=== PATIENT | female | born 1955 | race Hispanic/Latino ===

== ENCOUNTER 2021-12-03 11:56 | Emergency (ER) | payer MEDICARE, OTHER ==
[~2021-12-03] VITALS: Ht 162.6 cm; Wt 75.6 kg
[2021-12-03] MEDS ORDERED: SODIUM CHLORIDE 0.9% 1000ML 1,000 ML IV STA (12:20)
[2021-12-03] MEDS ORDERED: KETOROLAC TROMETHAMINE 30 MG/ML VIAL IV ONE (12:30)
[2021-12-03] MEDS ORDERED: FAMOTIDINE 20 MG/2 ML VIAL IV ONE ×2 (12:30→12:43)
[2021-12-03] MEDS ORDERED: ONDANSETRON HCL INJ 2MG/ML 2ML 2 MG/ML VIAL IV ONE (12:30)
[2021-12-03] MEDS ORDERED: ONDANSETRON HCL INJ 2MG/ML 2ML 2 MG/ML VIAL ONE (12:42)
[2021-12-03] MEDS ORDERED: SODIUM CHLORIDE 0.9% 1000ML 1,000 ML ONE (12:43)
[2021-12-03] MEDS ORDERED: KETOROLAC TROMETHAMINE 30 MG/ML VIAL ONE (12:43)
[2021-12-03] MEDS ORDERED: TRAZODONE HCL50 MG PO (13:02)
[2021-12-03] MEDS ORDERED: ATORVASTATIN CA10 MG PO (13:02)
[2021-12-03] MEDS ORDERED: PRESERVISION A1 EAC2 (13:02)
[2021-12-03] MEDS ORDERED: TIZANIDINE HCL4 M1 PO (13:02)
[2021-12-03] MEDS ORDERED: METOPROLOL TART50 MG PO (13:02)
[2021-12-03] MEDS ORDERED: JANUVIA100 MG PO (13:02)
[2021-12-03] MEDS ORDERED: DOXYCYCLINE HY100 MG PO (13:20)
[2021-12-03] MEDS ORDERED: IBUPROFEN200 MG PO (13:20)
[2021-12-03] MEDS ORDERED: CEFTRIAXONE 1 GM VIAL IV ONE (13:30)
== END 2021-12-03 13:36 | disposition home or self-care (01) ==
LOC: FSED 12:10
DX: R30.0 Dysuria (principal); N30.90 Cystitis, unspecified without hematuria; R10.2 Pelvic and perineal pain; I10 Essential (primary) hypertension; E11.9 Type 2 diabetes mellitus without complications
CPT/HCPCS: 74176; 80053; 81003; 85025; 96374; 96375; 99284; J0696; J1885; J2405; J7030

== ENCOUNTER 2022-12-09 13:08 | Emergency (ER) | payer MEDICARE ==
[~2022-12-09] VITALS: Ht 162.6 cm; Wt 77.1 kg
[~2022-12-09 13:08] MED LIST: ATORVASTATIN CA10 MG PO; DOXYCYCLINE HY100 MG PO; IBUPROFEN200 MG PO; JANUVIA100 MG PO; METOPROLOL TART50 MG PO; PRESERVISION A1 EAC2; TIZANIDINE HCL4 M1 PO; TRAZODONE HCL50 MG PO
[2022-12-09] MEDS ORDERED: SODIUM CHLORIDE 0.9% 1000ML 1,000 ML IV STA (13:18)
[2022-12-09] MEDS ORDERED: ONDANSETRON HCL INJ 2MG/ML 2ML 2 MG/ML VIAL ONE (13:43)
[2022-12-09] MEDS ORDERED: KETOROLAC TROMETHAMINE 30 MG/ML VIAL ONE (13:43)
[2022-12-09] MEDS ORDERED: SODIUM CHLORIDE 0.9% 1000ML 1,000 ML ONE (13:44)
[2022-12-09] MEDS ORDERED: FAMOTIDINE 20 MG/2 ML VIAL IV ONE ×2 (13:44→14:00)
[2022-12-09] MEDS ORDERED: ACETAMINOPHEN 325 MG TAB ONE (13:58)
[2022-12-09] MEDS ORDERED: ONDANSETRON HCL INJ 2MG/ML 2ML 2 MG/ML VIAL IV ONE (14:00)
[2022-12-09] MEDS ORDERED: KETOROLAC TROMETHAMINE 30 MG/ML VIAL IV ONE (14:00)
[2022-12-09] MEDS ORDERED: ACETAMINOPHEN 325 MG TAB PO ONE (14:00)
[2022-12-09] MEDS ORDERED: TYLENOL325 MG PO (14:05)
[2022-12-09] MEDS ORDERED: FAMOTIDINE20 MG PO (14:05)
[2022-12-09] MEDS ORDERED: ONDANSETRON ODT4 MG PO (14:05)
[2022-12-09] MEDS ORDERED: ANTIVERT25 M1 PO (14:17)
== END 2022-12-09 14:11 | disposition home or self-care (01) ==
LOC: FSED 13:24
DX: R42 Dizziness and giddiness (principal); R11.2 Nausea with vomiting, unspecified; R51.9 Headache, unspecified; I10 Essential (primary) hypertension; E11.9 Type 2 diabetes mellitus without complications; H35.30 Unspecified macular degeneration; Z85.3 Personal history of malignant neoplasm of breast; Z85.41 Personal history of malignant neoplasm of cervix uteri
CPT/HCPCS: 70450; 80053; 81003; 85025; 99284; J1885; J2405; J7030